=== PATIENT | female | born 2000 | race African-American/Black ===

== ENCOUNTER 2023-01-06 15:53 | Emergency (ER) | payer MEDICAID, OTHER ==
[~2023-01-06] VITALS: Ht 170.2 cm; Wt 119.3 kg
[2023-01-06] MEDS ORDERED: ACETAMINOPHEN 500 MG TAB PO ONE (16:15)
[2023-01-06 16:33] VITALS: BP 156/90
[2023-01-06 16:33] LABS: Basophils # (auto) 0 10 ^3/uL (0-0.2); Basophils % (auto) 0.5 % (0.0-2.0); Eosinophils # (auto) 0.1 10 ^3/uL (0-0.8); Eosinophils % (auto) 0.9 % (0.0-7.0); Hematocrit 33.9 % (36.0-46.0); Hemoglobin 11.3 g/dL (12.2-16.2); Lymphocytes # (auto) 3.2 10 ^3/uL (0.4-5.4); Lymphocytes % (auto) 35.8 % (10.0-50.0); Mean Corpuscular Hemoglobin 27.5 pg (28.0-32.0); Mean Corpuscular Hgb Conc. 33.3 g/dL (32.0-36.0); Mean Corpuscular Volume 82.6 fL (80.0-100.0); Monocytes # (auto) 0.4 10 ^3/uL (0-1.3); Monocytes % (auto) 4.9 % (0.0-12.0); Neutrophils # (auto) 5.2 10 ^3/uL (1.6-8.6); Neutrophils % (auto) 57.9 % (37.0-80.0); Nucleated Red Blood Cells % 0.1 %; Red Cell Distribution Width 15.9 % (11.8-14.3); White Blood Cell 8.9 10^3/uL (4.4-10.8)
[2023-01-06 16:45] LABS: Urine Bacteria FEW /hpf (None Seen); Urine Blood Negative /uL (Negative); Urine Hyaline Cast FEW /lpf (0 - 2); Urine Mucus FEW (None Seen); Urine Specific Gravity 1.018 (1.001-1.035); Urine WBC 12 /hpf (0 - 5)
[2023-01-06 16:58] LABS: Albumin 3.5 g/dL (3.4-5.0); Calcium 8.5 mg/dL (8.5-10.1); Potassium 4.3 mmol/L (3.5-5.1)
[2023-01-06 17:04] LABS: BUN/Creatinine Ratio 12.3 (10.0-20.0); Bilirubin, Total 0.2 mg/dL (0.2-1.0)
[2023-01-06] MEDS ORDERED: CEPH250C PO (18:21)
[2023-01-06] MEDS ORDERED: ACET500T58 PO (18:21)
== END 2023-01-06 19:11 | disposition home or self-care (01) ==
LOC: ER 15:53
DX: O23.41 Unspecified infection of urinary tract in pregnancy, first trimester (principal); N39.0 Urinary tract infection, site not specified; R10.2 Pelvic and perineal pain; Z3A.01 Less than 8 weeks gestation of pregnancy
CPT/HCPCS: 36415; 80053; 81001; 84702; 85025

== ENCOUNTER 2023-12-31 08:07 | Emergency (ER) | payer MEDICAID ==
[~2023-12-31] VITALS: Ht 170.2 cm; Wt 123.6 kg
[~2023-12-31 08:07] MED LIST: ACET500T58 PO; CEPH250C PO
[2023-12-31 08:29] VITALS: BP 136/77; PULSE 68; RESP 18; TEMP 98.1; O2SAT 98
[2023-12-31] MEDS ORDERED: TRIA0.02 TOP (08:35)
[2023-12-31] MEDS ORDERED: IBUP-1456 PO (08:35)
[2023-12-31] MEDS ORDERED: CEPH500C PO (08:35)
[2023-12-31] MEDS: cefTRIAXone SOD 1,000 MG VL IM ONE (08:35)
== END 2023-12-31 08:50 | disposition home or self-care (01) ==
LOC: ER 08:07
DX: S70.362A Insect bite (nonvenomous), left thigh, initial encounter (principal); W57.XXXA Bitten or stung by nonvenomous insect and other nonvenomous arthropods, initial encounter; Y93.89 Activity, other specified; Y92.89 Other specified places as the place of occurrence of the external cause; Y99.8 Other external cause status
CPT/HCPCS: 96372; 99283; J0696